=== PATIENT | female | born 1985 | race Hispanic/Latino ===

== ENCOUNTER 2018-08-09 10:44 | Emergency (ER) | payer OTHER ==
[2018-08-09 11:04] VITALS: TEMP 98.2; O2SAT 99
--- NOTE | 2018-08-09 11:30 | ED PDOC ---
Arrival/HPI - General Historian: Patient - History of Present Illness Narrative History of Present Illness (Text): 08/09/18 11:18 Patient is a 32 year old female with past medical history of depression, anxiety, ADHD presenting with chief complaint of anxiety which began an hour ago. Patient states she has trouble getting her words out and a sensation of her eyes moving rapidly. She has these episodes approximately four times a year, each episode lasting approximately 10 minutes. Each episode is associated with life stressors. She has been evaluated by neurologist before but never followed up. Currently denies fevers, chills, chest pain, shortness of breath, abdominal pain, diarrhea, dysuria. Time/Duration: 1 hour Symptom Onset: Sudden Symptom Course: Improving Activities at Onset: Rest <Itz Castañeda - Last Filed: 08/09/18 15:33> <Zoë Mccarthy - Last Filed: 08/09/18 19:27> - General Chief Complaint: Anxiety Time Seen by Provider: 08/09/18 11:07 Past Medical History - Provider Review Nursing Documentation Reviewed: Yes - Psychiatric Hx Psychophysiologic Disorder: Yes Hx Anxiety: Yes Hx Substance Use: Yes (MARIJUANA) <Itz Castañeda - Last Filed: 08/09/18 15:33> Family/Social History - Physician Review Nursing Documentation Reviewed: Yes Family/Social History: No Known Family HX Smoking Status: Never Smoked Hx Alcohol Use: No Hx Substance Use: Yes (MARIJUANA) <Itz Castañeda - Last Filed: 08/09/18 15:33> Allergies/Home Meds <Itz Castañeda - Last Filed: 08/09/18 15:33> <Zoë Mccarthy - Last Filed: 08/09/18 19:27> Allergies/Adverse Reactions: Allergies No Known Allergies Allergy (Verified 08/09/18 10:58) Home Medications: Home Meds Medication Instructions Recorded Confirmed Escitalopram [Lexapro] 20 mg PO DAILY 08/09/18 08/09/18 Lisdexamfetamine Dimesylate 50 mg PO DAILY 08/09/18 08/09/18 [Vyvanse] hydrOXYzine Pamoate [Vistaril] 25 mg PO DAILY 08/09/18 08/09/18 Review of Systems - Physician Review All systems were reviewed & negative as marked: Yes - Review of Systems Respiratory: Normal Cardiovascular: Normal Gastrointestinal: Normal Genitourinary Female: Normal Psychiatric: Anxiety <Itz Castañeda - Last Filed: 08/09/18 15:33> Physical Exam Vital Signs Reviewed: Yes Vital Signs Temp Pulse Resp BP Pulse Ox 08/09/18 10:59 98.2 F 80 23 123/71 99 Temperature: Afebrile Blood Pressure: Normal Pulse: Regular Respiratory Rate: Normal (d) Appearance: Positive for: Well-Appearing, Comfortable Pain Distress: None Mental Status: Positive for: Alert and Oriented X 3 - Systems Exam Head: Present: Atraumatic, Normocephalic Pupils: Present: PERRL Extroacular Muscles: Present: EOMI Conjunctiva: Present: Normal Mouth: Present: Moist Mucous Membranes Respiratory/Chest: Present: Clear to Auscultation, Good Air Exchange. No: Respiratory Distress, Accessory Muscle Use Cardiovascular: Present: Regular Rate and Rhythm, Normal S1, S2. No: Tachycardic Abdomen: Present: Normal Bowel Sounds. No: Tenderness, Distention Lower Extremity: Present: Normal Inspection. No: Edema Neurological: Present: GCS=15, CN II-XII Intact, Speech Normal, Motor Func Grossly Intact, Normal Sensory Function, Normal Cerebellar Funct, Gait Normal Skin: Present: Warm, Dry, Normal Color Psychiatric: Present: Alert, Oriented x 3, Other (slow speech ) <Itz Castañeda - Last Filed: 08/09/18 15:33> Vital Signs Temp Pulse Resp BP Pulse Ox 08/09/18 10:59 98.2 F 80 23 123/71 99 <Zoë Mccarthy - Last Filed: 08/09/18 19:27> Medical Decision Making ED Course and Treatment: 08/09/18 11:45 Impression: 32 year old female with anxiety Plan: - CBC, CMP - EKG - Urinalysis - CT head w/o contrast - Reassess and disposition Prior Visits: Notes and results from previous visits were reviewed. Progress Notes: 08/09/18 15:34 Patient was reexamined at bedside, reports resolution of symptoms. Labs and imaging were reviewed. Patient hemodynamically stable and optimized for discharge to follow up with primary medical doctor, psychiatrist, and neurologist. Patient in agreement with plan of management. <Itz Castañeda - Last Filed: 08/09/18 15:33> ED Course and Treatment: 08/09/18 12:20 Patient Seen with Resident: In agreement with resident note which contains more details about the patient. Patient seen and evaluated with resident. Came up with plan and treatment together. Impression: 32 year old female who is complaining of experiencing anxiety, which began an hour prior to ED presentation. - Lab Interpretations Lab Results: Total Bilirubin 0.4 mg/dL (0.2-1.3) 08/09/18 11:55 AST 19 U/L (14-36) 08/09/18 11:55 ALT 15 U/L (7-56) 08/09/18 11:55 Alkaline Phosphatase 53 U/L (38-126) 08/09/18 11:55 Total Protein 7.8 g/dL (5.8-8.3) 08/09/18 11:55 Albumin 4.3 g/dL (3.0-4.8) 08/09/18 11:55 Globulin 3.6 gm/dL 08/09/18 11:55 Albumin/Globulin Ratio 1.2 (1.1-1.8) 08/09/18 11:55 I have reviewed the lab results: Yes - RAD Interpretation Narrative RAD Interpretations (Text): 08/09/18 12:[address] without contrast: Dictator : Andi Vela MD IMPRESSION: No acute intracranial findings Radiology Orders: 08/09/18 11:35 HEAD W/O CONTRAST [CT] Stat Trim Attacher: Radiologist <Zoë Mccarthy M - Last Filed: 08/09/18 19:27> - Scribe Statement The provider has reviewed the documentation as recorded by the Scribjoni Bradley Provider Scribe Attestation: All medical record entries made by the Scribe were at my direction and personally dictated by me. I have reviewed the chart and agree that the record accurately reflects my personal performance of the history, physical exam, medical decision making, and the department course for this patient. I have also personally directed, reviewed, and agree with the discharge instructions and disposition. <Zoë Mccarthy - Last Filed: 08/09/18 19:27> Disposition/Present on Arrival - Present on Arrival Any Indicators Present on Arrival: No History of DVT/PE: No History of Uncontrolled Diabetes: No Urinary Catheter: No History of Decub. Ulcer: No History Surgical Site Infection Following: None - Disposition Have Diagnosis and Disposition been Completed?: Yes Disposition Time: 12:47 <Itz Castañeda - Last Filed: 08/09/18 15:33> <Zoë Mccarthy - Last Filed: 08/09/18 19:27> - Disposition Diagnosis: Anxiety Disposition: HOME/ ROUTINE Condition: STABLE Discharge Instructions (ExitCare): Anxiety, Adult (DC) Additional Instructions: Follow up with your primary medical doctor within one week Also follow up with your neurologist within one week Resume home medications as prescribed Return to ED if symptoms return or worsen Referrals: Luh Zarco MD [Primary Care Provider] - Follow up with primary Forms: openPeople (Azeri)
[2018-08-09 12:01] LABS: URINE BILIRUBIN NEGATIVE (NEGATIVE); URINE BLOOD TRACE-LYSED (NEGATIVE); URINE GLUCOSE (UA) NEGATIVE (NEGATIVE); URINE LEUKOCYTE ESTERASE NEGATIVE Leu/uL (NEGATIVE); URINE PROTEIN 30 mg/dL (<30 mg/dL); URINE UROBILINOGEN 0.2 E.U./dL (<1 E.U./dL)
[2018-08-09 12:07] LABS: BASO # 0.03 K/mm3 (0.0-2.0); BASO % 0.6 % (0.0-3.0); EOS % 0.4 % (1.5-5.0); HEMOGLOBIN 13.2 g/dL (12.0-16.0); LYMPH # 0.9 (1.2-3.4); LYMPH % 16.9 % (22.0-35.0); MEAN CELL VOLUME 85.1 fl (80.0-105.0); MEAN CORPUSCULAR HEMOGLOBIN 27.3 pg (25.0-35.0); MEAN PLATELET VOLUME 8.5 fl (7.0-11.0); MONO # 0.6 (0.1-0.6); MONO % 11.7 % (1.0-6.0); RBC 4.84 10^6/uL (3.5-6.1); RED CELL DISTRIBUTION WIDTH 12.8 % (11.5-14.5); WHITE BLOOD COUNT 5.3 10^3/uL (4.5-11.0)
[2018-08-09 12:15] LABS: ALB/GLOB RATIO 1.2 (1.1-1.8); ALBUMIN 4.3 g/dL (3.0-4.8); ALT/SGPT 15 U/L (7-56); AST/SGOT 19 U/L (14-36); BLOOD UREA NITROGEN 12 mg/dL (7-21); CALCIUM 10.3 mg/dL (8.4-10.5); GFR NON-AFRICAN AMERICAN > 60
[2018-08-09 12:31] LABS: URINE APPEARANCE CLEAR (CLEAR); URINE COLOR YELLOW (YELLOW)
[2018-08-09 12:32] LABS: URINE BACTERIA MANY /hpf; URINE WBC 0 - 2 /hpf (0-6)
[2018-08-09 12:33] LABS: URINE AMORPHOUS SEDIMENT FEW /hpf; URINE EPITHELIAL CELLS MANY /hpf (0-5)
--- NOTE | 2018-08-09 12:39 | CT ---
Date of service: 08/09/2018 PROCEDURE: CT HEAD WITHOUT CONTRAST. HISTORY: r/o CVA COMPARISON: None available. TECHNIQUE: Axial computed tomography images were obtained through the head/brain without intravenous contrast. Radiation dose: Total exam DLP = 815.79 mGy-cm. This CT exam was performed using one or more of the following dose reduction techniques: Automated exposure control, adjustment of the mA and/or kV according to patient size, and/or use of iterative reconstruction technique. FINDINGS: HEMORRHAGE: No intracranial hemorrhage. BRAIN: No mass effect or edema. No atrophy or chronic microvascular ischemic changes. VENTRICLES: Unremarkable. No hydrocephalus. CALVARIUM: Unremarkable. PARANASAL SINUSES: Unremarkable as visualized. No significant inflammatory changes. MASTOID AIR CELLS: Unremarkable as visualized. No inflammatory changes. OTHER FINDINGS: None. IMPRESSION: No acute intracranial findings
[2018-08-09 13:24] VITALS: BP 121/72; PULSE 79; RESP 17
--- NOTE | 2018-08-09 21:17 | CARD ---
APPROVED REPORT Date of service: 08/09/2018 EKG Measurement Heart [id number] <Conclusion> Normal sinus rhythm Normal ECG
== END 2018-08-09 13:23 | disposition home or self-care (01) ==
LOC: MERGE 10:44 → ED 10:44
DX: F41.9 Anxiety disorder, unspecified (principal); F90.9 Attention-deficit hyperactivity disorder, unspecified type